=== PATIENT | female | born 1990 | race American Indian/Alaskan Native ===

== ENCOUNTER 2017-10-06 11:27 | Emergency (ER) | payer SELFPAY ==
--- NOTE | 2017-10-06 14:01 | Emergency Department Report ---
ED Abdominal Pain HPI - General Chief Complaint: Back Pain/Injury Stated Complaint: BACK PAIN/RASH Time Seen by Provider: 10/06/17 13:50 Source: patient Mode of arrival: Ambulatory Limitations: No Limitations - History of Present Illness Initial Comments: Patient is a 27-year-old female that presents to emergency room with complaints of rash and itching to her hands 2 days. 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 Now that her hands are itching. Patient also complains of left flank and left back pain. Patient states she has a history of kidney stones. Patient states that the intensity of the pain fluctuates however right now the patient states that the pain is a 7 out of 10. Patient denies fever and chills. Patient denies dysuria. Patient denies nausea and vomiting. MD Complaint: flank pain -: Sudden Location: L flank Radiation: none Migration to: no migration Severity: severe Severity scale (0 -10): 10 Quality: cramping, stabbing Consistency: constant, colicky Improves With: medication, rest Worsens With: movement Associated Symptoms: denies other symptoms - Related Data Previous Rx's Medication Instructions Recorded Last Taken Type Acetaminophen/Codeine [Tylenol 1 tab PO Q4HR PRN #15 tablet 10/06/17 Unknown Rx /Codeine # 3 tab] Cyclobenzaprine [Flexeril] 10 mg PO BID PRN #15 tablet 10/06/17 Unknown Rx Tamsulosin [Flomax] 0.4 mg PO QDAY 14 Days #14 cap 10/06/17 Unknown Rx methylPREDNISolone [Medrol] 4 mg PO DAILY 6 Days #1 tab.ds.pk 10/06/17 Unknown Rx Allergies Allergy/AdvReac Type Severity Reaction Status Date / Time No Known Allergies Allergy Unverified 10/04/15 10:04 ED Review of Systems ROS: Stated complaint: BACK PAIN/RASH Other details as noted in HPI Comment: Unobtainable due to pts medical conditions Constitutional: denies: chills, fever Eyes: denies: eye pain, eye discharge, vision change ENT: denies: ear pain, throat pain Respiratory: denies: cough, shortness of breath, wheezing Cardiovascular: denies: chest pain, palpitations Endocrine: no symptoms reported Gastrointestinal: denies: abdominal pain, nausea, diarrhea Genitourinary: denies: urgency, dysuria, discharge Musculoskeletal: denies: back pain, joint swelling, arthralgia Skin: rash. denies: lesions Neurological: denies: headache, weakness, paresthesias Psychiatric: denies: anxiety, depression Hematological/Lymphatic: denies: easy bleeding, easy bruising ED Past Medical Hx - Past Medical History Previous Medical History?: Yes Hx Kidney Stones: Yes - Surgical History Past Surgical History?: No - Family History Family history: hypertension - Social History Smoking Status: Current Every Day Smoker Substance Use Type: Alcohol - Medications Home Medications: Home Medications Medication Instructions Recorded Confirmed Last Taken Type Acetaminophen/Codeine [Tylenol 1 tab PO Q4HR PRN #15 tablet 10/06/17 Unknown Rx /Codeine # 3 tab] Cyclobenzaprine [Flexeril] 10 mg PO BID PRN #15 tablet 10/06/17 Unknown Rx Tamsulosin [Flomax] 0.4 mg PO QDAY 14 Days #14 cap 10/06/17 Unknown Rx methylPREDNISolone [Medrol] 4 mg PO DAILY 6 Days #1 tab.ds.pk 10/06/17 Unknown Rx ED Physical Exam - General Limitations: No Limitations General appearance: alert, in no apparent distress - Head Head exam: Present: atraumatic, normocephalic - Eye Eye exam: Present: normal appearance - ENT ENT exam: Present: mucous membranes moist - Neck Neck exam: Present: normal inspection - Respiratory Respiratory exam: Present: normal lung sounds bilaterally. Absent: respiratory distress - Cardiovascular Cardiovascular Exam: Present: regular rate, normal rhythm. Absent: systolic murmur, diastolic murmur, rubs, gallop - GI/Abdominal GI/Abdominal exam: Present: soft, normal bowel sounds - Extremities Exam Extremities exam: Present: normal inspection - Back Exam Back exam: Present: normal inspection, CVA tenderness (L), muscle spasm - Neurological Exam Neurological exam: Present: alert, oriented X3 - Psychiatric Psychiatric exam: Present: normal affect, normal mood - Skin Skin exam: Present: warm, dry, normal color, rash, erythema (irritation or redness noted to bilateral dorsal hands. ) ED Course Vital Signs 10/06/17 10/06/17 11:34 15:52 Temperature 98.5 F Pulse Rate 96 H Respiratory 18 20 Rate Blood Pressure 133/85 O2 Sat by Pulse 97 Oximetry ED Medical Decision Making - Lab Data Result diagrams: 10/06/17 14:16 10/06/17 14:16 - Radiology Data Radiology results: report reviewed - Medical Decision Making She is 27-year-old female that presents with complaints of flank pain. Patient found to have a renal stone. Patient appears stable for discharge. We'll discharge patient home with instructions and prescriptions. - Differential Diagnosis flank pain. Renal stone. Musculoskeletal pain. Rash. Critical care attestation.: If time is entered above; I have spent that time in minutes in the direct care of this critically ill patient, excluding procedure time. ED Disposition Clinical Impression: Contact dermatitis, Flank pain, Renal stone, Back pain, Lumbar strain Disposition: TO HOME OR SELFCARE Is pt being admited?: No Does the pt Need Aspirin: No Condition: Stable Instructions: Kidney Stones (ED), Renal Colic (ED), Contact Dermatitis (ED), Flank Pain (ED) Additional Instructions: Patient to follow-up primary care in 3-5 days. Patient to follow up with urologist in 2-4 days. Patient to return to ER if condition worsens. Patient said Tylenol and ibuprofen when necessary for pain. Patient increase water. Patient to rest. Patient is take meds as directed. Prescriptions: Acetaminophen/Codeine [Tylenol /Codeine # 3 tab] 1 tab PO Q4HR PRN #15 tablet PRN Reason: Pain Cyclobenzaprine [Flexeril] 10 mg PO BID PRN #15 tablet PRN Reason: Spasms methylPREDNISolone [Medrol] 4 mg PO DAILY 6 Days #1 tab.ds.pk Tamsulosin [Flomax] 0.4 mg PO QDAY 14 Days #14 cap Referrals: PRIMARY CARE, [Primary Care Provider] - 3-5 Days Time of Disposition: 18:02
[2017-10-06 14:43] LABS: Alanine Aminotransferase 12 units/L (7-56); Albumin 3.9 g/dL (3.9-5); BUN/Creatinine Ratio 17; Blood Urea Nitrogen 10 mg/dL (7-17); Calcium 9.3 mg/dL (8.4-10.2); Hemolysis Index 14
[2017-10-06] MEDS ORDERED: ZOFRAN IV ONE (15:18)
[2017-10-06] MEDS ORDERED: TORADOL IV ONE (15:18)
[2017-10-06 15:55] LABS: HCG Qualitative,Urine Negative (Negative)
[2017-10-06 15:56] LABS: Bilirubin,Urine NEG (Negative); Blood,Urine LG (Negative); Color,Urine Yellow (Yellow); Mucus,Urine FEW /HPF; Protein,Urine <15 mg/dL mg/dL (Negative); Urobilinogen,Urine < 2.0 mg/dL (<2.0)
--- NOTE | 2017-10-06 17:19 | Cat Scan Report ---
FINAL REPORT PROCEDURE: CT ABDOMEN PELVIS WO CON TECHNIQUE: Computerized axial tomography of the abdomen and pelvis was performed without intravenous contrast. This study is performed without intravascular contrast material and its sensitivity for abdominal and pelvic pathology, including neoplasms, inflammation, abscess, free fluid, thrombosis, arterial dissection and infarction, is reduced compared with a contrast enhanced study. HISTORY: flank pain COMPARISON: No prior studies are available for comparison. FINDINGS: Lower Lung harding: Minimal atelectasis seen in the lung bases which are otherwise unremarkable. Upper Abdomen: The liver, gallbladder, the adrenal glands pancreas and spleen are unremarkable. Kidneys, Ureters and Urinary bladder: There is a nonobstructing 2.8 x 2.3 millimeter calculus in the lower 3rd of the left kidney. No other renal calculi are seen. No renal masses are identified. There is no hydronephrosis. No ureteral calculi are identified. Multiple calcifications are seen in the lower pelvis which appear to represent phleboliths. The urinary bladder is unremarkable. Retroperitoneum: Abdominal aorta appears normal. Nonspecific subcentimeter lymph nodes are seen in the retroperitoneum. No pathologically enlarged lymph nodes are identified. Bowel: Bowel loops are unremarkable. No evidence of bowel obstruction ascites or free intraperitoneal gas. Normal-appearing appendix is seen in the right lower quadrant directed medially. Reproductive organs: Uterus is deviated to the right of midline otherwise unremarkable. No abnormal adnexal masses are identified. Other: No acute bony abnormalities are seen. IMPRESSION: Small nonobstructing calculus visualize left kidney. No evidence of hydronephrosis or ureteral calculi. No other abnormalities are seen..
[2017-10-06 17:51] LABS: Basophils # (Auto) 0.1 K/mm3 (0.0-0.1); Basophils % (Auto) 0.8 % (0.0-1.8); Eosinophils # (Auto) 0.3 K/mm3 (0.0-0.4); Eosinophils % (Auto) 3.5 % (0.0-4.3); Hematocrit 41.2 % (30.3-42.9); Hemoglobin 13.3 gm/dl (10.1-14.3); Lymphocytes # (Auto) 3.7 K/mm3 (1.2-5.4); Lymphocytes % (Auto) 38.4 % (13.4-35.0); Mean Corpuscular HGB Conc 32 % (30-34); Mean Corpuscular Hemoglobin 28 pg (28-32); Mean Corpuscular Volume 87 fl (79-97); Monocytes # (Auto) 0.5 K/mm3 (0.0-0.8); Monocytes % (Auto) 5.6 % (0.0-7.3); Platelet Count 274 K/mm3 (140-440); Red Blood Count 4.73 M/mm3 (3.65-5.03); Red Cell Distribution Width 14.9 % (13.2-15.2)
[2017-10-06 19:11] VITALS: BP 125/72
== END 2017-10-06 19:12 | disposition home or self-care (01) ==
LOC: ED 11:27
DX: S39.012A Strain of muscle, fascia and tendon of lower back, initial encounter (principal); L25.9 Unspecified contact dermatitis, unspecified cause; R10.9 Unspecified abdominal pain; N20.0 Calculus of kidney; I10 Essential (primary) hypertension; F17.200 Nicotine dependence, unspecified, uncomplicated; X50.3XXA Overexertion from repetitive movements, initial encounter; Y93.89 Activity, other specified; Y92.89 Other specified places as the place of occurrence of the external cause; Y99.8 Other external cause status
CPT/HCPCS: 36415; 74176; 80053; 81001; 81025; 85025; 96374; 96375; 99284; J1885; J2405; J2930

== ENCOUNTER 2018-02-22 10:05 | Emergency (ER) | payer SELFPAY ==
[2018-02-22 10:15] VITALS: BP 133/75
[2018-02-22] MEDS ORDERED: CLEOCIN 900 MG/50 mL 900 MG/50 ML BAG IV ONE (11:59)
[2018-02-22] MEDS ORDERED: NORCO 5/325 PO ONE (11:59)
--- NOTE | 2018-02-22 12:10 | Emergency Department Report ---
Chief Complaint: Dental/Oral Stated Complaint: FACE SWOLLEN Time Seen by Provider: 02/22/18 11:45 - HPI History of Present Illness: [id number] female presents to the emergency department with complaint of pain and facial swelling to the upper lip that radiates to the right side of the nose and cheek and all this is been going on since last night. The patient thinks she might have some type of a dental abscess or infection. She has a dental appointment on March 20 but does not think she can wait that long. No drooling or trismus. She has not taken anything for her symptoms prior to presentation. - ROS Review of Systems: Positive for facial swelling and pain Negative for fever, nausea, vomiting - Exam Vital Signs: Vital Signs 02/22/18 10:11 Temperature 99.3 F Pulse Rate 96 H Respiratory 16 Rate Blood Pressure 133/75 O2 Sat by Pulse 99 Oximetry Physical Exam: Patient does have swelling to the right side of the nasal labial fold as well as right paranasal and right cheek. There is an area to the right nasal labial fold that is very tender, mobile and fluctuant concerning for abscess. Oropharynx is otherwise clear. No obvious palpable or visual dental abscess seen at this time. MSE screening note: Focused history and physical exam performed. Due to findings the following was ordered: I have ordered a CBC, IV clindamycin and a CT of the facial bones with IV contrast. ED Disposition for MSE Condition: Stable Referrals: PRIMARY CARE, [Primary Care Provider] - 3-5 Days
[2018-02-22 12:44] LABS: Basophils # (Auto) 0.1 K/mm3 (0.0-0.1); Basophils % (Auto) 0.7 % (0.0-1.8); Eosinophils # (Auto) 0.3 K/mm3 (0.0-0.4); Hematocrit 42.5 % (30.3-42.9); Hemoglobin 13.9 gm/dl (10.1-14.3); Lymphocytes # (Auto) 3.7 K/mm3 (1.2-5.4); Lymphocytes % (Auto) 32.9 % (13.4-35.0); Mean Corpuscular HGB Conc 33 % (30-34); Mean Corpuscular Hemoglobin 29 pg (28-32); Mean Corpuscular Volume 87 fl (79-97); Monocytes # (Auto) 0.5 K/mm3 (0.0-0.8); Monocytes % (Auto) 4.3 % (0.0-7.3); Platelet Count 256 K/mm3 (140-440)
[2018-02-22 14:18] LABS: BUN/Creatinine Ratio 13; Blood Urea Nitrogen 9 mg/dL (7-17); Calcium 9.5 mg/dL (8.4-10.2); Hemolysis Index 34
--- NOTE | 2018-02-22 15:28 | Cat Scan Report ---
CT FACIAL BONES WITH CONTRAST: HISTORY: Abscess, swelling to upper lip. TECHNIQUE: Helical CT images following IV contrast with sagittal and coronal CT reformations. FINDINGS: There is an encapsulated fluid collection in the upper lip region just to the right of midline. The epicenter of this collection overlies the right maxillary incisors. This collection measures 3.2 x 2.7 x 2.4 cm. The collection erodes into the anterior hard palate. It is unclear if this represents a large dental abscess or other chronic abnormality such as a dentigerous cyst. Please correlate with the patient's clinical history. The remaining facial soft tissues are unremarkable. No acute facial bone fracture is identified. The sinuses are well-aerated. IMPRESSION: Cystic collection overlying the anterior maxilla to the right of midline as described.
[2018-02-22] MEDS ORDERED: MORPHINE IV ONE (15:42)
[2018-02-22] MEDS ORDERED: XYLOCAINE 1% 20 mL INFILTRATI ONE (15:58)
--- NOTE | 2018-02-22 16:09 | Emergency Department Report ---
Abscess Boil HPI - HPI Chief Complaint: Dental/Oral Stated Complaint: FACE SWOLLEN Time Seen by Provider: 02/22/18 11:45 Duration: 1 Day Location: Other (right frontal gingival/maxillary region) Severity: Mild History: Yes Pain, No Fever, No Purulent Drainage, No Numbness, No Foreign Body , No Previous History, No Insect Bite HPI: This is a 27-year-old female nontoxic, well nourished in appearance, no acute signs of distress presents to the ED with c/o of abscess to right gingival /maxillary upper area. Patient stated has history of dental caries but no follows up with a dentist. Patient denies any pus or drainage. She denies any fever, chills, nausea, vomiting, chest pain, short of breath, headache or stiff neck. Patient denies any allergies with no significant past medical history. Home Medications: Previous Rx's Medication Instructions Recorded Last Taken Type Acetaminophen/Codeine [Tylenol 1 tab PO Q4HR PRN #15 tablet 10/06/17 Unknown Rx /Codeine # 3 tab] Cyclobenzaprine [Flexeril] 10 mg PO BID PRN #15 tablet 10/06/17 Unknown Rx Tamsulosin [Flomax] 0.4 mg PO QDAY 14 Days #14 cap 10/06/17 Unknown Rx methylPREDNISolone [Medrol] 4 mg PO DAILY 6 Days #1 tab.ds.pk 10/06/17 Unknown Rx Acetaminophen/Codeine [Tylenol 1 tab PO Q6H PRN #12 tab 02/22/18 Unknown Rx /Codeine # 3 tab] Chlorhexidine Mouthwash [Peridex] 15 ml MM BID #1 bottle 02/22/18 Unknown Rx Clindamycin [Clindamycin CAP] 300 mg PO Q8H #21 cap 02/22/18 Unknown Rx Ibuprofen [Motrin] 600 mg PO Q8H PRN #30 tablet 02/22/18 Unknown Rx Allergies/Adverse Reactions: Allergies Allergy/AdvReac Type Severity Reaction Status Date / Time No Known Allergies Allergy Unverified 10/04/15 10:04 ED Review of Systems ROS: Stated complaint: FACE SWOLLEN Other details as noted in HPI Constitutional: denies: chills, fever Eyes: denies: eye pain, eye discharge, vision change ENT: denies: ear pain, throat pain Respiratory: denies: cough, shortness of breath, wheezing Cardiovascular: denies: chest pain, palpitations Endocrine: no symptoms reported Gastrointestinal: denies: abdominal pain, nausea, diarrhea Genitourinary: denies: urgency, dysuria, discharge Musculoskeletal: denies: back pain, joint swelling, arthralgia Skin: denies: rash, lesions Neurological: denies: headache, weakness, paresthesias Psychiatric: denies: anxiety, depression Hematological/Lymphatic: denies: easy bleeding, easy bruising ED Past Medical Hx - Past Medical History Previous Medical History?: Yes Hx Kidney Stones: Yes - Surgical History Past Surgical History?: No - Social History Smoking Status: Never Smoker Substance Use Type: None - Medications Home Medications: Home Medications Medication Instructions Recorded Confirmed Last Taken Type Acetaminophen/Codeine [Tylenol 1 tab PO Q4HR PRN #15 tablet 10/06/17 Unknown Rx /Codeine # 3 tab] Cyclobenzaprine [Flexeril] 10 mg PO BID PRN #15 tablet 10/06/17 Unknown Rx Tamsulosin [Flomax] 0.4 mg PO QDAY 14 Days #14 cap 10/06/17 Unknown Rx methylPREDNISolone [Medrol] 4 mg PO DAILY 6 Days #1 tab.ds.pk 10/06/17 Unknown Rx Acetaminophen/Codeine [Tylenol 1 tab PO Q6H PRN #12 tab 02/22/18 Unknown Rx /Codeine # 3 tab] Chlorhexidine Mouthwash [Peridex] 15 ml MM BID #1 bottle 02/22/18 Unknown Rx Clindamycin [Clindamycin CAP] 300 mg PO Q8H #21 cap 02/22/18 Unknown Rx Ibuprofen [Motrin] 600 mg PO Q8H PRN #30 tablet 02/22/18 Unknown Rx ED Abscess Boil Physical Exam - Exam General: Vital signs noted. No distress. Alert and acting appropriately. GENERAL: The patient is a well-developed, well-nourished in no apparent distress. Patient is alert and acting appropriately for age. Alert and oriented 3, no apparent distress, normal gait, atraumatic. HEENT: Head is normocephalic and atraumatic. PERRL, Extraocular muscles are intact. Pupils are equal, round, and reactive to light and accommodation. Nares appeared normal. Mouth is well hydrated and without lesions. Mucous membranes are moist. Posterior pharynx clear of any exudate or lesions. Mouth is well hydrated and without lesions. Tonsils not erythematous or swollen. Uvula midline. Tongue elevated. Mucous members are moist. Posterior pharynx clear, no exudate or lesions. Patent airways. NECK: Supple. No carotid bruits. No lymphadenopathy or thyromegaly.nontender. No meningitic signs are noted. LUNGS: Clear to auscultation. Non labor breathing. No intercostal retractions. Symmetrical with respiration, no wheezing, no rales, or crackles. HEART: Regular rate and rhythm without murmur, rubs or gallops. No reproducible. S1, S2 present, regular rate and rhythm without murmur, no rubs, no gallops. ABDOMEN: Soft, nontender, and nondistended. Positive bowel sounds. No hepatosplenomegaly was noted. No guarding or rebound tenderness, negative epigastric bruit. Negative psoas sign, negative banks sign, negative McBurneys sign EXTREMITIES: Without any cyanosis, clubbing, rash, lesions or edema. Peripheral pulses intact. Capillary refill less than 2 seconds. Full range of motion bilaterally. NEUROLOGIC: Cranial nerves II through XII are grossly intact. Alert and oriented x 3. Normal gait. Symmetrical strength and sensation. Reflexes 2+ throughout. Cerebellar testing normal. GCS score of 15. PSYCHIATRIC: Normal affect with no suicidal or homicidal ideations. Skin: 3 cm induration and flutances noted to upper right sided maxillary area. No pus or drainage noted. Tender to touch. Size: 3 cm Exam: Yes Tenderness, Yes Fluctuance, Yes Normal Neurologic Exam, Yes Normal Circulation, No Surrounding Cellulites/Erythema, No Lymphangitis, No Crepitation , No Heart Murmur I & D Note - I & D Note I & D Note: Under sterile field, I used Betadine to cleanse the area. I then used 1% lidocaine plain with 25-gauge 5/8 needle to inject area for anesthetic purposes. Total volume injected 2 mL. I then used an 11 blade to make a 1 cm incision. About 5 mL's of purulent drainage has been noted. I then used a hemostat to break the abscess formation. I then used sterile 0.9% normal saline flush to flush the wound with total volume of 40 mL used. Bleeding is under control. Patient tolerated the procedure well with no signs of distress noted. ED Course Vital Signs 0802/22/18 02/22/18 10:11 12:25 15:50 Temperature 99.3 F Pulse Rate 96 H Respiratory 16 18 22 Rate Blood Pressure 133/75 O2 Sat by Pulse 99 Oximetry - Reevaluation(s) Reevaluation #1: 02/22/18 16:25 Patient is speaking in full sentences with no signs of distress noted. - Consultations Consultation #1: 02/22/18 16:25 Patient has been consulted with Dr. Duke about patient history, physical exam, and labs/CT and examined and screened patient and agrees to ED plan of care. Critical care attestation.: If time is entered above; I have spent that time in minutes in the direct care of this critically ill patient, excluding procedure time. ED Medical Decision Making - Lab Data Result diagrams: 02/22/18 12:13 02/22/18 12:13 - Medical Decision Making This is a 27-year-old female that presents with abscess. Patient is stable and was examined by me. This is incision and drainage and has been performed and patient tolerated well. Patient was educated on proper wound care. Labs obtained. CT obtained without contrast. Patient received clindamycin IV and as well as discharge. Patient also discharged with Tylenol with codeine and was instructed not to operate any machinery while taking this due to drowsiness. Patient that a family member will drive her home after discharge due to drowsiness of morphine. Patient was instructed to refer to Follow-up with a dentist doctor in 3-5 days or if symptoms worsen and continue return to emergency room as soon as possible. At time of discharge, the patient does not seem toxic or ill in appearance. No acute signs of distress noted. Patient agrees to discharge treatment plan of care. No further questions noted by the patient. ED Disposition Clinical Impression: Abscess, Encounter for incision and drainage procedure, Dental caries, Gingival abscess Disposition: [id number] TO HOME OR SELFCARE Is pt being admited?: No Does the pt Need Aspirin: No Condition: Stable Instructions: Abscess Incision and Drainage (ED), Abscess (ED), Acetaminophen/ Codeine (By mouth), Ibuprofen (By mouth), Clindamycin (By mouth) Additional Instructions: Follow-up with a dentist doctor in 3-5 days or if symptoms worsen and continue return to emergency room as soon as possible. Do not operate any machinery while taking Tylenol with codeine as this may cause drowsiness. Prescriptions: Acetaminophen/Codeine [Tylenol /Codeine # 3 tab] 1 tab PO Q6H PRN #12 tab PRN Reason: Pain , Severe (7-10) Chlorhexidine Mouthwash [Peridex] 15 ml MM BID #1 bottle Clindamycin [Clindamycin CAP] 300 mg PO Q8H #21 cap Ibuprofen [Motrin] 600 mg PO Q8H PRN #30 tablet PRN Reason: Pain Referrals: PRIMARY CAREMD [Primary Care Provider] - 3-5 Days MARKELL MAYS MD [Staff Physician] - 3-5 Days [facility] [Outside] - 3-5 Days Forms: Work/School Release Form(ED)
== END 2018-02-22 16:47 | disposition home or self-care (01) ==
LOC: ED 10:05
DX: K05.219 Aggressive periodontitis, localized, unspecified severity (principal); K02.9 Dental caries, unspecified; Z87.442 Personal history of urinary calculi
CPT/HCPCS: 36415; 41800; 70487; 80048; 84703; 85025; 96365; 96375; 99284; J2270; Q9967

== ENCOUNTER 2018-09-16 08:05 | Emergency (ER) | payer OTHER ==
[2018-09-16 08:18] VITALS: BP 154/87
[2018-09-16 08:48] LABS: Bilirubin,Urine NEG (Negative); Blood,Urine SM (Negative); Color,Urine Colorless (Yellow); Protein,Urine <15 mg/dL mg/dL (Negative); Urobilinogen,Urine < 2.0 mg/dL (<2.0)
[2018-09-16 08:49] LABS: HCG Qualitative,Urine Negative (Negative)
--- NOTE | 2018-09-16 09:39 | Emergency Department Report ---
ED Abdominal Pain HPI - General Chief Complaint: Abdominal Pain Stated Complaint: ABD PAIN/SIDE PAIN/VAGINAL PAIN Time Seen by Provider: 09/16/18 09:29 Source: patient Mode of arrival: Ambulatory Limitations: No Limitations - History of Present Illness MD Complaint: abdominal pain, flank pain -: This morning Location: L flank Radiation: suprapubic Migration to: no migration Severity: moderate Severity scale (0 -10): 6 Quality: sharp Consistency: intermittent - Related Data Previous Rx's Medication Instructions Recorded Last Taken Type Acetaminophen/Codeine [Tylenol 1 tab PO Q4HR PRN #15 tablet 10/06/17 Unknown Rx /Codeine # 3 tab] Cyclobenzaprine [Flexeril] 10 mg PO BID PRN #15 tablet 10/06/17 Unknown Rx Tamsulosin [Flomax] 0.4 mg PO QDAY 14 Days #14 cap 10/06/17 Unknown Rx methylPREDNISolone [Medrol] 4 mg PO DAILY 6 Days #1 tab.ds.pk 10/06/17 Unknown Rx Acetaminophen/Codeine [Tylenol 1 tab PO Q6H PRN #12 tab 02/22/18 Unknown Rx /Codeine # 3 tab] Chlorhexidine Mouthwash [Peridex] 15 ml MM BID #1 bottle 02/22/18 Unknown Rx Clindamycin [Clindamycin CAP] 300 mg PO Q8H #21 cap 02/22/18 Unknown Rx Ibuprofen [Motrin] 600 mg PO Q8H PRN #30 tablet 02/22/18 Unknown Rx Allergies Allergy/AdvReac Type Severity Reaction Status Date / Time No Known Allergies Allergy Unverified 10/04/15 10:04 ED Review of Systems ROS: Stated complaint: ABD PAIN/SIDE PAIN/VAGINAL PAIN Other details as noted in HPI Comment: All other systems reviewed and negative Constitutional: denies: chills, fever Respiratory: denies: cough, orthopnea, shortness of breath, SOB with exertion, SOB at rest, wheezing Cardiovascular: denies: chest pain, palpitations Gastrointestinal: abdominal pain. denies: nausea, vomiting, diarrhea, constipation Musculoskeletal: back pain Neurological: denies: headache, weakness ED Past Medical Hx - Past Medical History Hx Kidney Stones: Yes - Social History Smoking Status: Current Every Day Smoker Substance Use Type: Alcohol, Non Opiate Pain - Medications Home Medications: Home Medications Medication Instructions Recorded Confirmed Last Taken Type Acetaminophen/Codeine [Tylenol 1 tab PO Q4HR PRN #15 tablet 10/06/17 Unknown Rx /Codeine # 3 tab] Cyclobenzaprine [Flexeril] 10 mg PO BID PRN #15 tablet 10/06/17 Unknown Rx Tamsulosin [Flomax] 0.4 mg PO QDAY 14 Days #14 cap 10/06/17 Unknown Rx methylPREDNISolone [Medrol] 4 mg PO DAILY 6 Days #1 tab.ds.pk 10/06/17 Unknown Rx Acetaminophen/Codeine [Tylenol 1 tab PO Q6H PRN #12 tab 02/22/18 Unknown Rx /Codeine # 3 tab] Chlorhexidine Mouthwash [Peridex] 15 ml MM BID #1 bottle 02/22/18 Unknown Rx Clindamycin [Clindamycin CAP] 300 mg PO Q8H #21 cap 02/22/18 Unknown Rx Ibuprofen [Motrin] 600 mg PO Q8H PRN #30 tablet 02/22/18 Unknown Rx ED Physical Exam - General Limitations: No Limitations General appearance: alert, in no apparent distress - Head Head exam: Present: atraumatic, normocephalic, normal inspection - Eye Eye exam: Present: normal appearance, PERRL - ENT ENT exam: Present: normal exam, normal orophraynx, mucous membranes moist - Neck Neck exam: Present: normal inspection, full ROM. Absent: tenderness, meningismus, lymphadenopathy, thyromegaly - Respiratory Respiratory exam: Present: normal lung sounds bilaterally. Absent: respiratory distress, wheezes, rales, rhonchi, stridor, chest wall tenderness, accessory muscle use, decreased breath sounds, prolonged expiratory - Cardiovascular Cardiovascular Exam: Present: regular rate, normal rhythm, normal heart sounds - GI/Abdominal GI/Abdominal exam: Present: soft, normal bowel sounds. Absent: distended, tenderness, guarding, rebound, rigid, organomegaly, mass, bruit, pulsatile mass, hernia - Extremities Exam Extremities exam: Present: normal inspection, full ROM, normal capillary refill. Absent: pedal edema, calf tenderness - Back Exam Back exam: Present: normal inspection, full ROM. Absent: CVA tenderness (R), CVA tenderness (L), muscle spasm, paraspinal tenderness, vertebral tenderness, rash noted - Neurological Exam Neurological exam: Present: alert, oriented X3, CN II-XII intact, normal gait, reflexes normal - Psychiatric Psychiatric exam: Present: normal mood - Skin Skin exam: Present: warm, intact, normal color ED Course Vital Signs 09/16/18 08:15 Temperature 98.7 F Pulse Rate 93 H Respiratory 20 Rate Blood Pressure 154/87 O2 Sat by Pulse 100 Oximetry ED Medical Decision Making - Radiology Data Radiology results: report reviewed Referring Physician: HERMINIA BARAJAS Patient Name: BRIDGET PENALOZA Date of : 1990 Sex: Female Report Date: 2018-09-16 Report Status: Finalized Findings [facility] [address] [place] [address] Cat Scan Report Signed Patient: BRIDGET PENALOZA MR#: [id number] : 1990 Acct:[id number] Age/Sex: 28 / F ADM Date: 09/16/18 Loc: ED Attending Dr: Ordering Physician: HERMINIA BARAJAS Date of Service: 09/16/18 Procedure(s): CT abdomen pelvis wo con Accession Number(s): [id number] cc: HERMINIA BARAJAS PROCEDURE: CT ABDOMEN PELVIS WO CON TECHNIQUE: Computerized axial tomography of the abdomen and pelvis was performed without intravenous contrast. This study is performed without intravascular contrast material and its sensitivity for abdominal and pelvic pathology, including neoplasms, inflammation, abscess, free fluid, thrombosis, arterial dissection and infarction, is reduced compared with a contrast enhanced study. HISTORY: ABDOMINAL PAIN/ left flank pain COMPARISONS: None . FINDINGS: Visualized lower thorax: No significant abnormality. Liver: Normal size and attenuation. Spleen: Normal size and attenuation. Gallbladder and biliary system: Normal. Pancreas: Normal. Adrenals: Normal. Kidneys: Mild left hydronephrosis and mild left hydroureter. Possible 3.5 mm calcified stone at the left ureterovesicular junction versus phlebolith. Normal noncontrast appearance of the right kidney. GI tract: No focal wall thickening. No evidence of obstruction. Normal appendix without surrounding inflammatory change. . Lymph nodes and mesentery: Normal. Vasculature: Normal.. Bladder: Normal. Reproductive organs: Normal. Peritoneum: No free fluid. Multiple phleboliths are seen in the pelvis. Musculoskeletal structures: No suspicious osseous lesions. No acute fracture or dislocation. Soft tissues are normal. Other: None. IMPRESSION: Possible 3.5 mm calcified stone at the left ureterovesicular junction with associated mild left hydronephrosis and mild left hydroureter. . This document is electronically signed by Chiquis Beck MD., September 16 2018 10:34:43 AM ET Transcribed By: ROSA Dictated By: CHIQUIS BECK MD Electronically Authenticated By: CHIQUIS BECK MD Signed Date/Time: 09/16/18 1036 DD/ 1010 TD/TT: 09/16/18 1010 Critical care attestation.: If time is entered above; I have spent that time in minutes in the direct care of this critically ill patient, excluding procedure time. ED Disposition Clinical Impression: Flank pain, Ureteric colic Disposition: - TO HOME OR SELFCARE Is pt being admited?: No Condition: Stable Instructions: Abdominal Pain (ED), Flank Pain (ED), Kidney Stones (ED), Dysuria (ED) Referrals: KUNAL DOMINGUEZ MD [Primary Care Provider] - 3-5 Days DUSTIN LARSEN MD [Staff Physician] - 3-5 Days
--- NOTE | 2018-09-16 10:36 | Cat Scan Report ---
PROCEDURE: CT ABDOMEN PELVIS WO CON TECHNIQUE: Computerized axial tomography of the abdomen and pelvis was performed without intravenous contrast. This study is performed without intravascular contrast material and its sensitivity for ab dominal and pelvic pathology, including neoplasms, inflammation, abscess, free fluid, thrombosis, art erial dissection and infarction, is reduced compared with a contrast enhanced study. HISTORY: ABDOMINAL PAIN/ left flank pain COMPARISONS: None . FINDINGS: Visualized lower thorax: No significant abnormality. Liver: Normal size and attenuation. Spleen: Normal size and attenuation. Gallbladder and biliary system: Normal. Pancreas: Normal. Adrenals: Normal. Kidneys: Mild left hydronephrosis and mild left hydroureter. Possible 3.5 mm calcified stone at the l eft ureterovesicular junction versus phlebolith. Normal noncontrast appearance of the right kidney. GI tract: No focal wall thickening. No evidence of obstruction. Normal appendix without surrounding inflammatory change. . Lymph nodes and mesentery: Normal. Vasculature: Normal.. Bladder: Normal. Reproductive organs: Normal. Peritoneum: No free fluid. Multiple phleboliths are seen in the pelvis. Musculoskeletal structures: No suspicious osseous lesions. No acute fracture or dislocation. Soft tis sues are normal. Other: None. IMPRESSION: Possible 3.5 mm calcified stone at the left ureterovesicular junction with associated mi ld left hydronephrosis and mild left hydroureter. . This document is electronically signed by Chiquis Monet MD., September 16 2018 10:34:43 AM ET
== END 2018-09-16 11:30 | disposition home or self-care (01) ==
LOC: ED 08:05
DX: N23 Unspecified renal colic (principal); F17.200 Nicotine dependence, unspecified, uncomplicated
CPT/HCPCS: 74176; 81001; 81025; 99284

== ENCOUNTER 2018-10-10 11:07 | Day surgery (SDC) | payer BC, MEDICAID ==
[~2018-10-10 11:07] MED LIST: ANCEF/STERILE WATER 2 GM/20 ML IV NR; LACTATED RINGERS 1,000 ML IV SCH; VERSED IV ONE
[2018-10-10] MEDS ORDERED: XYLOCAINE MPF 2% ONE (13:05)
[2018-10-10] MEDS ORDERED: DIPRIVAN 10 MG/ML IV ONE (13:06)
[2018-10-10] MEDS ORDERED: SUBLIMAZE ONE ×2 (13:06)
[2018-10-10] MEDS ORDERED: SUBLIMAZE IV PRN (13:25)
--- NOTE | 2018-10-10 13:25 | Anesthesia Day of Surgery ---
Anesthesia Day of Surgery - Day of Surgery Patient Examined: Yes Patient H&P Reviewed: Yes Patient is NPO: Yes
--- NOTE | 2018-10-10 13:25 | Anesthesia Consultation ---
Anesthesia Consult and Med Hx Date of service: 10/10/18 - Airway Anesthetic Teeth Evaluation: Good ROM Head & Neck: Adequate Mental/Hyoid Distance: Adequate Mallampati Class: Class II Intubation Access Assessment: Possibly Difficult - Pulmonary Exam CTA: Yes - Cardiac Exam Cardiac Exam: RRR - Pre-Operative Health Status ASA Pre-Surgery Classification: ASA3 Proposed Anesthetic Plan: General - Pulmonary Hx Smoking: Yes (1/3 PPD X 10 YRS) Hx Respiratory Symptoms: No Hx Sleep Apnea: No (CARMEN PRE SCREEN HIGH RISK) - Cardiovascular System Hx Hypertension: No - Central Nervous System Hx Back Pain: Yes (FROM STONE) - Endocrine Hx Renal Disease: No Hx Liver Disease: No Hx Insulin Dependent Diabetes: No Hx Non-Insulin Dependent Diabetes: No Hx Thyroid Disease: No - Other Systems Hx Cancer: No Hx Obesity: Yes (BMI 40) - Additional Comments Anesthesia Medical History Comments: No prior GA or FHx anesthetic complications.
[2018-10-10] MEDS ORDERED: WATER FOR IRRIG STERILE IR ONE ×2 (13:27→13:43)
--- NOTE | 2018-10-10 14:02 | Short Stay Summary ---
Short Stay Documentation Date of service: 10/10/18 - History H&P: obtained from office - Allergies and Medications Current Medications: Allergies No Known Allergies Allergy (Verified 10/05/18 12:29) Home Medications Medication Instructions Recorded Confirmed Last Taken Type Calcium Carbonate [Tums Ultra 1,177 mg PO PRN PRN 10/05/18 10/05/18 Unknown History Strength] HYDROcodone/ACETAMINOPHEN [Cyrus 1 each PO PRN PRN 10/05/18 10/05/18 Unknown History 5-325 Tablet] Active Medications Cefazolin Sodium (Ancef/Sterile Water 2 Gm/20 Ml) 2 gm IV PREOP NR Stop: 10/10/18 23:59 Fentanyl (Sublimaze) 50 mcg IV Q5MIN PRN PRN Reason: Pain , Severe (7-10) Stop: 10/10/18 23:59 Lactated Ringer's (Lactated Ringers) 1,000 mls @ 75 mls/hr IV DIRECT JESUS Last Admin: 10/10/18 12:10 Dose: 75 mls/hr Documented by: - Brief post op/procedure progress note Date of procedure: 10/10/18 Pre-op diagnosis: left ureteral stone Post-op diagnosis: same Procedure: cysto, rpg, left ureteroscopy, basket stone, stent with external string Anesthesia: BRONSON Surgeon: DUSTIN LARSEN Estimated blood loss: none Condition: stable - Hospital course Hospital course: noe leal, teresabid, post info on chart - Disposition Condition at discharge: Stable Disposition: DC-01 TO HOME OR SELFCARE Short Stay Discharge Plan Follow up with: KUNAL DOMINGUEZ MD [Primary Care Provider] - 7 Days
[2018-10-10] MEDS ORDERED: DEMEROL ONE (14:14)
[2018-10-10] MEDS ORDERED: DEMEROL IV PRN (14:16)
--- NOTE | 2018-10-10 14:21 | Operative Report ---
PREOPERATIVE DIAGNOSIS: Left distal ureteral stone, 4 mm. POSTOPERATIVE DIAGNOSIS: Left distal ureteral stone, 4 mm. PROCEDURE: Cystoscopy, right retrograde pyelogram, left ureteroscopy, basket stone extraction, double-J stent (26-Taiwanese 22 cm with an external string). SURGEON: Seng Enciso MD ANESTHESIA: General. ESTIMATED BLOOD LOSS: Minimal. FLUIDS: Crystalloid. COMPLICATIONS: No complications. INDICATIONS: This 28-year-old female is seen in the office for left flank pain and pelvic pain. CT abdomen and pelvis revealed a 4 mm distal stone. We tried conservative treatment; however, the patient developed worsening pain and wants to proceed with surgical intervention. Risks, benefits, and complications were explained. DESCRIPTION OF PROCEDURE: The patient was taken to the operative suite, placed in a supine position. After adequate general anesthesia, placed in a dorsal lithotomy position, prepped and draped in a sterile fashion. Pancystourethroscopy was performed with 22-Taiwanese Storz cystoscope. Stone could be appreciated at the opening of the ureteral orifice on the left side. Right retrograde pyelogram was obtained with an 8 Taiwanese [place] catheter and 8 mL of contrast. No filling defects or obstruction. Two 0.035 Glidewires were placed. Rigid ureteroscopy was performed. Stone was engaged with a 3-Taiwanese Gretchen basket and extracted without difficulty. Ureteroscopy up to the renal pelvis, no other stones could be appreciated. A 6-Taiwanese 22 cm double-J stent with an external string was left indwelling. The patient was extubated and taken to recovery room. She will go home on Macrobid, Ultram and Humphreys. We will give her her stone. JOB# [id number] [facility]
[2018-10-10] MEDS ORDERED: NORCO 5/325 PO PRN (15:10)
[2018-10-10 15:30] VITALS: BP 126/82
--- NOTE | 2018-10-11 08:10 | Fluoroscopy Report ---
FLUOROSCOPY RETROGRADE UROGRAPHY: HISTORY: Calculus the left ureter. FINDINGS: Fluoroscopy was provided by radiology during retrograde urography by the urologist. 4 fluoroscopic images were captured. The images demonstrate placement of a left ureteral stent which is in good position on final image. The procedural notes mention that left ureteroscopy was performed and a left ureteral stone was removed by basket extraction. Images of the right retrograde pyelogram are normal. IMPRESSION: Left ureteral stone removal. Left ureteral stent placement. Please correlate with the procedural report by Dr. Enciso is needed.
== END 2018-10-10 16:30 | disposition home or self-care (01) ==
LOC: OR 11:07
PROVIDERS: ATTEND Urology
DX: N20.1 Calculus of ureter (principal); K21.9 Gastro-esophageal reflux disease without esophagitis; F17.210 Nicotine dependence, cigarettes, uncomplicated; E66.9 Obesity, unspecified; Z68.41 Body mass index [BMI] 40.0-44.9, adult; Z87.440 Personal history of urinary (tract) infections; Z79.899 Other long term (current) drug therapy; Z98.890 Other specified postprocedural states
CPT/HCPCS: 52332; 52352; 74420; 81025; A4217; C1758; C1769; C2617; J0690; J2175; J2250; J2704; J3010; J7120; Q9967

== ENCOUNTER 2019-02-22 04:29 | Emergency (ER) | payer BC, MEDICAID ==
[2019-02-22 04:40] VITALS: BP 147/83
--- NOTE | 2019-02-22 04:58 | Emergency Department Report ---
ED General Adult HPI - General Chief complaint: Earache Stated complaint: RT EARACHE; H/A Time Seen by Provider: 02/22/19 04:53 Source: patient Mode of arrival: Ambulatory Limitations: No Limitations - History of Present Illness Initial comments: Patient is a 28-year-old Afro-Welsh female with no past medical history presents to the ED with Altman of acute onset persistent severe right hip pain and ringing in the right ear for the last 1 month, worse the last 12 hours. Patient also complains of severe right temporal headache for the last 1 month. Patient denies nausea, vomiting, dizziness, vertigo, fever, chills, nasal and sinus congestion, chest pain, shortness of breath, sore throat, cough or abdominal pain, change in vision or neck pain. MD Complaint: right ear pain -: Gradual, month(s) (1) Location: face (right ear) Radiation: non-radiation Severity scale (0 -10): 4 Quality: aching, sharp Consistency: intermittent Improves with: none Worsens with: none Associated Symptoms: denies other symptoms, headaches. denies: confusion, chest pain, cough, diaphoresis, loss of appetite, malaise, nausea/vomiting, rash, seizure, shortness of breath, syncope, weakness Treatments Prior to Arrival: none - Related Data Home Medications Medication Instructions Recorded Confirmed Last Taken Calcium Carbonate [Tums Ultra 1,177 mg PO PRN PRN 10/05/18 10/05/18 Unknown Strength] HYDROcodone/ACETAMINOPHEN [Holmes 1 each PO PRN PRN 10/05/18 10/05/18 Unknown 5-325 Tablet] Previous Rx's Medication Instructions Recorded Last Taken Type Amoxicillin/Potassium Clav 1 each PO Q12H #20 tablet 02/22/19 Unknown Rx [Augmentin 875-125 Tablet] Ibuprofen [Motrin] 800 mg PO Q8HR PRN #20 tablet 02/22/19 Unknown Rx Ofloxacin 0.3% [Floxin 0.3% Otic] 1 drop OT DAILY #1 bottle 02/22/19 Unknown Rx Allergies Allergy/AdvReac Type Severity Reaction Status Date / Time No Known Allergies Allergy Verified 10/05/18 12:29 ED Review of Systems ROS: Stated complaint: RT EARACHE; H/A Other details as noted in HPI Constitutional: denies: chills, fever Eyes: denies: eye pain, eye discharge, vision change ENT: ear pain (right). denies: throat pain, dental pain, hearing loss, epistaxis, congestion Respiratory: denies: cough, shortness of breath, wheezing Cardiovascular: denies: chest pain, palpitations Endocrine: no symptoms reported Gastrointestinal: denies: abdominal pain, nausea, vomiting, diarrhea Genitourinary: denies: urgency, dysuria, discharge Musculoskeletal: denies: back pain, joint swelling, arthralgia Skin: denies: rash, lesions Neurological: headache. denies: weakness, paresthesias Psychiatric: denies: anxiety, depression Hematological/Lymphatic: denies: easy bleeding, easy bruising ED Past Medical Hx - Past Medical History Previous Medical History?: Yes Hx Hypertension: No Hx GERD: Yes (PRN MEDS) Hx Liver Disease: No Hx Renal Disease: No Hx Kidney Stones: Yes Hx HIV: No - Surgical History Past Surgical History?: Yes Additional Surgical History: bladder, with stents - Social History Smoking Status: Current Every Day Smoker Substance Use Type: None - Medications Home Medications: Home Medications Medication Instructions Recorded Confirmed Last Taken Type Calcium Carbonate [Tums Ultra 1,177 mg PO PRN PRN 10/05/18 10/05/18 Unknown History Strength] HYDROcodone/ACETAMINOPHEN [Holmes 1 each PO PRN PRN 10/05/18 10/05/18 Unknown History 5-325 Tablet] Amoxicillin/Potassium Clav 1 each PO Q12H #20 tablet 02/22/19 Unknown Rx [Augmentin 875-125 Tablet] Ibuprofen [Motrin] 800 mg PO Q8HR PRN #20 tablet 02/22/19 Unknown Rx Ofloxacin 0.3% [Floxin 0.3% Otic] 1 drop OT DAILY #1 bottle 02/22/19 Unknown Rx ED Physical Exam - General Limitations: No Limitations General appearance: alert, in no apparent distress - Head Head exam: Present: atraumatic, normocephalic, normal inspection - Eye Eye exam: Present: normal appearance, PERRL, EOMI Pupils: Present: normal accommodation - ENT ENT exam: Present: normal exam, normal orophraynx, mucous membranes moist, other (erythematous tender right TM; erythematous right ear canal; swollen tender post-auricular lymphadenopathy) - Neck Neck exam: Present: normal inspection, full ROM, lymphadenopathy. Absent: tenderness, meningismus, thyromegaly - Respiratory Respiratory exam: Present: normal lung sounds bilaterally. Absent: respiratory distress, wheezes, rales, rhonchi, stridor, chest wall tenderness, accessory muscle use, decreased breath sounds, prolonged expiratory - Cardiovascular Cardiovascular Exam: Present: regular rate, normal rhythm, normal heart sounds. Absent: systolic murmur, diastolic murmur, rubs, gallop - GI/Abdominal GI/Abdominal exam: Present: soft, normal bowel sounds. Absent: tenderness, guarding, rebound, hyperactive bowel sounds, hypoactive bowel sounds - Rectal Rectal exam: Present: deferred - Extremities Exam Extremities exam: Present: normal inspection, full ROM, normal capillary refill - Back Exam Back exam: Present: normal inspection, full ROM. Absent: tenderness, CVA tenderness (R), CVA tenderness (L), muscle spasm, paraspinal tenderness - Neurological Exam Neurological exam: Present: alert, oriented X3, CN II-XII intact, normal gait, reflexes normal - Psychiatric Psychiatric exam: Present: normal affect, normal mood - Skin Skin exam: Present: warm, dry, intact, normal color. Absent: rash ED Course Vital Signs 02/22/19 04:31 Temperature 98.3 F Pulse Rate 97 H Respiratory 20 Rate Blood Pressure 147/83 O2 Sat by Pulse 100 Oximetry - Reevaluation(s) Reevaluation #1: 02/22/19 04:57 This is a 28-year-old -Welsh female who presented to the ED with persistent right ear pain. In the ED, patient is alert and oriented 3 and is not in distress, with normal vital signs. Patient was treated for pain in the ED and discharged home on medications because of the physical exam findings acute otitis media, right temporal headache and post auricular lymphadenopathy. Patient was discharged home on pain medications and antibiotics and advised to follow-up with her primary care physician in 7-10 days for reevaluation or return to the ED immediately if symptoms get worse. ED Medical Decision Making - Medical Decision Making This is a 28-year-old -Welsh female who presented to the ED with persistent right ear pain. In the ED, patient is alert and oriented 3 and is not in distress, with normal vital signs. Patient was treated for pain in the ED and discharged home on medications because of the physical exam findings acute otitis media, right temporal headache and post auricular lymphadenopathy. Patient was discharged home on pain medications and antibiotics and advised to follow-up with her primary care physician in 7-10 days for reevaluation or return to the ED immediately if symptoms get worse. - Differential Diagnosis acute otitis media; Lymphadenopathy; Acute otitis externa Critical care attestation.: If time is entered above; I have spent that time in minutes in the direct care of this critically ill patient, excluding procedure time. ED Disposition Clinical Impression: Acute otitis media with effusion of right ear, Lymphadenopathy Acute otitis externa of right ear Qualifiers: Otitis externa type: unspecified type Qualified Code(s): H60.501 - Unspecified acute noninfective otitis externa, right ear Tension-type headache Qualifiers: Headache chronicity pattern: acute headache Intractability: not intractable Qualified Code(s): G44.209 - Tension-type headache, unspecified, not intractable Disposition: TO HOME OR SELFCARE Is pt being admited?: No Does the pt Need Aspirin: No Condition: Stable Instructions: Otitis Media (ED), Lymphadenopathy (ED), Acute Headache (ED) Additional Instructions: Take medications with food, drink plenty of fluids and follow-up with your primary care physician in 7-10 days for reevaluation. Return to the ED immediately if symptoms get worse. Prescriptions: Amoxicillin/Potassium Clav [Augmentin 875-125 Tablet] 1 each PO Q12H #20 tablet Ofloxacin 0.3% [Floxin 0.3% Otic] 1 drop OT DAILY #1 bottle Ibuprofen [Motrin] 800 mg PO Q8HR PRN #20 tablet PRN Reason: Pain , Severe (7-10) Referrals: [facility] [Outside] - 3-5 Days Time of Disposition: 05:01 Print Language: SWAZI
== END 2019-02-22 05:10 | disposition home or self-care (01) ==
LOC: ED 04:29
DX: H60.501 Unspecified acute noninfective otitis externa, right ear (principal); G44.209 Tension-type headache, unspecified, not intractable; R59.1 Generalized enlarged lymph nodes; K21.9 Gastro-esophageal reflux disease without esophagitis; F17.200 Nicotine dependence, unspecified, uncomplicated; Z79.1 Long term (current) use of non-steroidal anti-inflammatories (NSAID); Z79.899 Other long term (current) drug therapy; Z87.442 Personal history of urinary calculi
CPT/HCPCS: 99282

== ENCOUNTER 2019-09-17 07:44 | Emergency (ER) | payer SELFPAY ==
[2019-09-17 07:50] VITALS: BP 142/82
--- NOTE | 2019-09-17 10:16 | Emergency Department Report ---
ED Female HPI - General Chief complaint: Urogenital-Female Stated complaint: CONSTANT NOSE BLEED/VAGINAL PAIN Time Seen by Provider: 09/17/19 08:52 Source: patient Mode of arrival: Ambulatory Limitations: No Limitations - History of Present Illness Initial comments: 29-year-old -Irish female without significant past medical history presents with complaints of intermittent nosebleeds for 4 days and vaginal itching and swelling x2 weeks. She denies any current nosebleed. She reports she has been having a flare of her allergies in blowing and wiping her nose a great deal. She denies any facial pain, dizziness, known blood clotting disorders, blood thinners, trauma to the nose, or fever. She denies any vaginal discharge, bleeding, dysuria, hematuria, or dyspareunia. She states she took a leftover Diflucan and her symptoms improved initially and then worsened after using sex toys. -: Sudden - Related Data Home Medications Medication Instructions Recorded Confirmed Last Taken Calcium Carbonate [Tums Ultra 1,177 mg PO PRN PRN 10/05/18 10/05/18 Unknown Strength] HYDROcodone/ACETAMINOPHEN [[place] 1 each PO PRN PRN 10/05/18 10/05/18 Unknown 5-325 Tablet] Previous Rx's Medication Instructions Recorded Last Taken Type Amoxicillin/Potassium Clav 1 each PO Q12H #20 tablet 02/22/19 Unknown Rx [Augmentin 875-125 Tablet] Ibuprofen [Motrin] 800 mg PO Q8HR PRN #20 tablet 02/22/19 Unknown Rx Ofloxacin 0.3% [Floxin 0.3% Otic] 1 drop OT DAILY #1 bottle 02/22/19 Unknown Rx CLOTRIMAZOLE 1% Vag Cream [Mycelex 1 applicatio VG QHS 10 Days #1 tube 09/17/19 Unknown Rx Vag cream] Fluconazole [Diflucan TAB] 150 mg PO ONCE 1 Days #1 tablet 09/17/19 Unknown Rx Triamcinolone 0.1% [Kenalog 0.1% 1 applic TP BID PRN #1 tube 09/17/19 Unknown Rx CREAM] predniSONE [Deltasone] 20 mg PO TID 3 Days #9 tab 09/17/19 Unknown Rx Allergies Allergy/AdvReac Type Severity Reaction Status Date / Time No Known Allergies Allergy Verified 10/05/18 12:29 ED Review of Systems ROS: Stated complaint: CONSTANT NOSE BLEED/VAGINAL PAIN Other details as noted in HPI Constitutional: denies: chills, fever ENT: epistaxis. denies: throat pain Respiratory: denies: cough Gastrointestinal: denies: abdominal pain, nausea, vomiting Genitourinary: denies: urgency, dysuria, frequency, hematuria, discharge, abnormal menses, dyspareunia Skin: pruritus. denies: lesions, change in color Neurological: denies: headache, numbness, paresthesias, confusion, abnormal gait ED Past Medical Hx - Past Medical History Previous Medical History?: Yes Hx Hypertension: No Hx GERD: Yes (PRN MEDS) Hx Liver Disease: No Hx Renal Disease: No Hx Kidney Stones: Yes Hx HIV: No - Surgical History Past Surgical History?: Yes Additional Surgical History: bladder, with stents - Social History Smoking Status: Current Every Day Smoker Substance Use Type: None - Medications Home Medications: Home Medications Medication Instructions Recorded Confirmed Last Taken Type Calcium Carbonate [Tums Ultra 1,177 mg PO PRN PRN 10/05/18 10/05/18 Unknown History Strength] HYDROcodone/ACETAMINOPHEN [[place] 1 each PO PRN PRN 10/05/18 10/05/18 Unknown History 5-325 Tablet] Amoxicillin/Potassium Clav 1 each PO Q12H #20 tablet 02/22/19 Unknown Rx [Augmentin 875-125 Tablet] Ibuprofen [Motrin] 800 mg PO Q8HR PRN #20 tablet 02/22/19 Unknown Rx Ofloxacin 0.3% [Floxin 0.3% Otic] 1 drop OT DAILY #1 bottle 02/22/19 Unknown Rx CLOTRIMAZOLE 1% Vag Cream [Mycelex 1 applicatio VG QHS 10 Days #1 tube 09/17/19 Unknown Rx Vag cream] Fluconazole [Diflucan TAB] 150 mg PO ONCE 1 Days #1 tablet 09/17/19 Unknown Rx Triamcinolone 0.1% [Kenalog 0.1% 1 applic TP BID PRN #1 tube 09/17/19 Unknown Rx CREAM] predniSONE [Deltasone] 20 mg PO TID 3 Days #9 tab 09/17/19 Unknown Rx ED Physical Exam - General Limitations: No Limitations General appearance: alert, in no apparent distress - Head Head exam: Present: atraumatic, normocephalic - Eye Eye exam: Present: normal appearance, PERRL. Absent: scleral icterus - ENT ENT exam: Present: mucous membranes moist, other (Very minimal bleeding noted to anterior left nare, no tenderness palpation of nose or face or swelling noted.) - Neck Neck exam: Present: normal inspection, full ROM - Respiratory Respiratory exam: Absent: respiratory distress - Cardiovascular Cardiovascular Exam: Present: regular rate, normal rhythm - External exam: Present: swelling (Mild to moderate swelling noted of right labia menorah, no erythema noted, mild irritation noted). Absent: erythema, lesions, lacerations, ecchymosis, bleeding - Neurological Exam Neurological exam: Present: alert, oriented X3 - Psychiatric Psychiatric exam: Present: normal affect, normal mood - Skin Skin exam: Present: warm, dry, intact, normal color. Absent: rash ED Course Vital Signs 09/17/19 07:46 Temperature 98.9 F Pulse Rate 113 H Respiratory 18 Rate Blood Pressure 142/82 O2 Sat by Pulse 100 Oximetry ED Medical Decision Making - Medical Decision Making Patient here with complaints of intermittent nosebleed and vaginal itching and swelling. Nosebleed likely due to irritation of the anterior Kiesselbach plexus. Patient denies any STI symptoms. Mild to moderate swelling noted of right labia minora on exam-yeast vulvovaginitis versus vulvar dermatitis. Prescriptions for steroids and antifungals given. She is well-appearing and stable for discharge home. Patient states she does have an appointment with her [facility] [employer] [facility] [employer] OFFICER set for 2 weeks. Discussed strict return precautions in detail with patient who verbalizes understanding. Critical care attestation.: If time is entered above; I have spent that time in minutes in the direct care of this critically ill patient, excluding procedure time. ED Disposition Clinical Impression: Vulvovaginitis Disposition: DC- TO HOME OR SELFCARE Is pt being admited?: No Condition: Stable Instructions: Vaginitis (ED) Additional Instructions: Please follow-up with your [facility] CHIE[facility] CREATIVE OFFICER as scheduled Prescriptions: CLOTRIMAZOLE 1% Vag Cream [Mycelex Vag cream] 1 applicatio VG QHS 10 Days #1 tube predniSONE [Deltasone] 20 mg PO TID 3 Days #9 tab Fluconazole [Diflucan TAB] 150 mg PO ONCE 1 Days #1 tablet Triamcinolone 0.1% [Kenalog 0.1% CREAM] 1 applic TP BID PRN #1 tube PRN Reason: Itching
== END 2019-09-17 10:35 | disposition home or self-care (01) ==
LOC: ED 07:44
DX: N76.0 Acute vaginitis (principal); R04.0 Epistaxis; K21.9 Gastro-esophageal reflux disease without esophagitis; F17.200 Nicotine dependence, unspecified, uncomplicated; Z95.5 Presence of coronary angioplasty implant and graft; Z98.890 Other specified postprocedural states; Z79.899 Other long term (current) drug therapy; Z87.442 Personal history of urinary calculi
CPT/HCPCS: 99282

== ENCOUNTER 2020-02-13 22:52 | Emergency (ER) | payer SELFPAY ==
[2020-02-13 23:11] VITALS: BP 146/92
== END 2020-02-14 02:24 | disposition left against medical advice (07) ==
LOC: ED 22:52
DX: R50.9 Fever, unspecified (principal); M54.6 Pain in thoracic spine; Z53.21 Procedure and treatment not carried out due to patient leaving prior to being seen by health care provider

== ENCOUNTER 2020-05-03 22:42 | Emergency (ER) | payer SELFPAY ==
[2020-05-04 01:50] LABS: Bilirubin,Urine NEG (Negative); Blood,Urine NEG (Negative); Color,Urine Yellow (Yellow); Mucus,Urine 2+ /HPF; Protein,Urine <15 mg/dL mg/dL (Negative); Urobilinogen,Urine < 2.0 mg/dL (<2.0)
[2020-05-04 01:57] LABS: HCG Qualitative,Urine Negative (Negative)
--- NOTE | 2020-05-04 02:57 | Emergency Department Report ---
ED Female HPI - General Chief complaint: Urogenital-Female Stated complaint: BURNING URINATION/VAGINAL DISCHARGE Time Seen by Provider: 05/04/20 02:41 Source: patient Mode of arrival: Ambulatory Limitations: No Limitations - History of Present Illness Initial comments: The patient was evaluated in the emergency department for symptoms described in the history of present illness. He/she was evaluated in the context of the global COVID-19 pandemic, which necessitated consideration that the patient might be at risk for infection with the virus that causes COVID-19. Institutional protocols and algorithms that pertain to the evaluation of patients at risk for COVID-19 are in a state of rapid change based on information released by regulatory bodies including the CDC and federal and state organizations. These policies and algorithms were followed during the patient's care in the emergency department. Please note that these policies, procedures and recommendations changed on a rapid basis. 30-year-old -[place]ir[place] female presents to the emergency room stating that she had sex on Monday after 4 years of abstinence. Patient reports that she has a female partner in she had used a strap on and was being penetrated when she started having difficulty with entering her introitus. Patient states that she had noticed a small amount of light pink blood. Patient states on Monday she had an episode of vaginal discharge felt that it was a yeast infection and use [id number] Vagisil suppository. Patient states after she did use a suppository she started having pain in her vaginal area with urination. Patient states at this time she does not have any discomfort but would like for a female exam to see if she had any tearing. Patient denies any fever chills no nausea no vomiting no difficulty walking. MD Complaint: possible STD Onset/Timin -: days(s) Location: perineum Radiation: non-radiating Severity: mild Quality: burning Consistency: intermittent Improves with: bathing Worsens with: urination Are you Now?: No Last Menstrual Period: 04/10/20 EDC: 01/15/21 Associated Symptoms: vaginal discharge. denies: vaginal bleeding, abdominal pain, nausea/vomiting, fever/chills, headaches, hematuria - Related Data Sexually active: Yes (female) Home Medications Medication Instructions Recorded Confirmed Last Taken Calcium Carbonate [Tums Ultra 1,177 mg PO PRN PRN 10/05/18 10/05/18 Unknown Strength] HYDROcodone/ACETAMINOPHEN [[place] 1 each PO PRN PRN 10/05/18 10/05/18 Unknown 5-325 Tablet] Previous Rx's Medication Instructions Recorded Last Taken Type Amoxicillin/Potassium Clav 1 each PO Q12H #20 tablet 02/22/19 Unknown Rx [Augmentin 875-125 Tablet] Ibuprofen [Motrin] 800 mg PO Q8HR PRN #20 tablet 02/22/19 Unknown Rx Ofloxacin 0.3% [Floxin 0.3% Otic] 1 drop OT DAILY #1 bottle 02/22/19 Unknown Rx CLOTRIMAZOLE 1% Vag Cream [Mycelex 1 applicatio VG QHS 10 Days #1 tube 09/17/19 Unknown Rx Vag cream] Fluconazole (Nf) [Diflucan TAB] 150 mg PO ONCE 1 Days #1 tablet 09/17/19 Unknown Rx Triamcinolone 0.1% [Kenalog 0.1% 1 applic TP BID PRN #1 tube 09/17/19 Unknown Rx CREAM] predniSONE [Deltasone] 20 mg PO TID 3 Days #9 tab 09/17/19 Unknown Rx Allergies Allergy/AdvReac Type Severity Reaction Status Date / Time No Known Allergies Allergy Verified 10/05/18 12:29 ED Review of Systems ROS: Stated complaint: BURNING URINATION/VAGINAL DISCHARGE Other details as noted in HPI Comment: All other systems reviewed and negative ED Past Medical Hx - Past Medical History Previous Medical History?: Yes Hx Hypertension: No Hx GERD: Yes (PRN MEDS) Hx Liver Disease: No Hx Renal Disease: No Hx Kidney Stones: Yes Hx HIV: No - Surgical History Past Surgical History?: Yes Additional Surgical History: bladder, with stents - Social History Smoking Status: Never Smoker - Medications Home Medications: Home Medications Medication Instructions Recorded Confirmed Last Taken Type Calcium Carbonate [Tums Ultra 1,177 mg PO PRN PRN 10/05/18 10/05/18 Unknown History Strength] HYDROcodone/ACETAMINOPHEN [[place] 1 each PO PRN PRN 10/05/18 10/05/18 Unknown History 5-325 Tablet] Amoxicillin/Potassium Clav 1 each PO Q12H #20 tablet 02/22/19 Unknown Rx [Augmentin 875-125 Tablet] Ibuprofen [Motrin] 800 mg PO Q8HR PRN #20 tablet 02/22/19 Unknown Rx Ofloxacin 0.3% [Floxin 0.3% Otic] 1 drop OT DAILY #1 bottle 02/22/19 Unknown Rx CLOTRIMAZOLE 1% Vag Cream [Mycelex 1 applicatio VG QHS 10 Days #1 tube 09/17/19 Unknown Rx Vag cream] Fluconazole (Nf) [Diflucan TAB] 150 mg PO ONCE 1 Days #1 tablet 09/17/19 Unknown Rx Triamcinolone 0.1% [Kenalog 0.1% 1 applic TP BID PRN #1 tube 09/17/19 Unknown Rx CREAM] predniSONE [Deltasone] 20 mg PO TID 3 Days #9 tab 09/17/19 Unknown Rx ED Physical Exam - General Limitations: No Limitations General appearance: alert, in no apparent distress - Head Head exam: Present: atraumatic, normocephalic - Eye Eye exam: Present: normal appearance - ENT ENT exam: Present: mucous membranes moist - Respiratory Respiratory exam: Absent: accessory muscle use - GI/Abdominal GI/Abdominal exam: Present: soft. Absent: distended, tenderness, guarding - Speculum exam: Present: erythema, vaginal discharge, other (Swelling of the vaginal tissue at the introitus) Bi-manual exam: Present: normal bi-manual exam - Extremities Exam Extremities exam: Present: normal inspection, full ROM - Back Exam Back exam: Present: normal inspection - Neurological Exam Neurological exam: Present: alert, oriented X3, normal gait - Psychiatric Psychiatric exam: Present: normal affect, normal mood - Skin Skin exam: Present: warm, dry, intact, normal color. Absent: rash ED Course Vital Signs 05/04/20 00:29 Temperature 98.0 F Pulse Rate 85 Respiratory 17 Rate Blood Pressure 145/82 O2 Sat by Pulse 100 Oximetry ED Medical Decision Making - Lab Data Laboratory Tests 05/04/20 Unknown Urine Color Yellow Urine Turbidity Clear Urine pH 6.0 Ur Specific [place] 1.023 Urine Protein <15 mg/dl Urine Glucose (UA) Neg Urine Ketones Neg Urine Blood Neg Urine Nitrite Neg Urine Bilirubin Neg Urine Urobilinogen < 2.0 Ur Leukocyte Esterase Mod Urine WBC (Auto) 6.0 Urine RBC (Auto) 8.0 U Epithel Cells (Auto) 1.0 Urine Mucus 2+ Urine HCG, Qual Negative - Medical Decision Making 30-year-old -[place]ir[place] female presents to the emergency room stating that she had sex on Monday after 4 years of abstinence. Patient reports that she has a female partner in she had used a strap on and was being penetrated when she started having difficulty with entering her introitus. Patient states that she had noticed a small amount of light pink blood. Patient states on Monday she had an episode of vaginal discharge felt that it was a yeast infection and use [id number] Vagisil suppository. Patient states after she did use a suppository she started having pain in her vaginal area with urination. Patient states at this time she does not have any discomfort but would like for a female exam to see if she had any tearing. Patient denies any fever chills no nausea no vomiting no difficulty walking. Wet prep and chlamydia and gonorrhea has been sent. Urinalysis shows moderate amount of leukoesterase nitrate negative no elevated WBC. Wet prep is negative for any yeast trichomonas or bacterial vaginosis. Patient will be discharged home to follow-up with her [facility] provider. Critical care attestation.: If time is entered above; I have spent that time in minutes in the direct care of this critically ill patient, excluding procedure time. ED Disposition Clinical Impression: Vaginal irritation Disposition: DC-01 TO HOME OR SELFCARE Is pt being admited?: No Does the pt Need Aspirin: No Condition: Stable Additional Instructions: Urinalysis is negative, microbiology is negative for any bacterial vaginosis no trichomonas and no yeast. I recommend to discontinue the Vagisil. Follow-up with an [facility]IST. Tylenol or ibuprofen as needed for pain management. Referrals: PRIMARY CAREMD [Primary Care Provider] - 3-5 Days PHYLICIA ELLIS MD [Staff Physician] - 3-5 Days Forms: Work/School Release Form(ED)
[2020-05-04 03:47] VITALS: BP 132/80
== END 2020-05-04 03:45 | disposition home or self-care (01) ==
LOC: ED 22:42
DX: N89.8 Other specified noninflammatory disorders of vagina (principal); K21.9 Gastro-esophageal reflux disease without esophagitis; N20.0 Calculus of kidney; Z79.899 Other long term (current) drug therapy
CPT/HCPCS: 81001; 81025; 87210; 87591

== ENCOUNTER 2021-01-01 03:33 | Emergency (ER) | payer SELFPAY ==
[2021-01-01] MEDS ORDERED: IBUPROFEN 800 MG TAB PO ONE (04:31)
[2021-01-01] MEDS ORDERED: dexAMETHasone 20 MG/5 ML VIAL IM ONE (04:31)
[2021-01-01] MEDS ORDERED: AMOXICILLIN/K CLAV 875/125MG TAB PO ONE (04:31)
--- NOTE | 2021-01-01 04:39 | Emergency Department Report ---
ED General Adult HPI - General Chief complaint: Sore Throat Stated complaint: SORE THROAT,PAINFUL SWALLOWING Source: patient Mode of arrival: Ambulatory Limitations: No Limitations - History of Present Illness Initial comments: Patient is a 30-year-old female who presents for sore throat x3 days with sinus pressure bilateral frontal and maxillary. There is yellow clear postnasal drip. Patient states of subjective fever at home , and pain with swallowing patient is tolerating p.o. intake however. Symptoms are exacerbated by swallowing, symptoms are relieved by nothing tried - Related Data Home Medications Medication Instructions Recorded Confirmed Last Taken Calcium Carbonate [Tums Ultra 1,177 mg PO PRN PRN 10/05/18 10/05/18 Unknown Strength] HYDROcodone/ACETAMINOPHEN [[place] 1 each PO PRN PRN 10/05/18 10/05/18 Unknown 5-325 Tablet] Previous Rx's Medication Instructions Recorded Last Taken Type Amoxicillin/Potassium Clav 1 each PO Q12H #20 tablet 02/22/19 Unknown Rx [Augmentin 875-125 Tablet] Ibuprofen [Motrin] 800 mg PO Q8HR PRN #20 tablet 02/22/19 Unknown Rx Ofloxacin 0.3% [Floxin 0.3% Otic] 1 drop OT DAILY #1 bottle 02/22/19 Unknown Rx CLOTRIMAZOLE 1% Vag Cream [Mycelex 1 applicatio VG QHS 10 Days #1 tube 09/17/19 Unknown Rx Vag cream] Fluconazole (Nf) [Diflucan TAB] 150 mg PO ONCE 1 Days #1 tablet 09/17/19 Unknown Rx Triamcinolone 0.1% [Kenalog 0.1% 1 applic TP BID PRN #1 tube 09/17/19 Unknown Rx CREAM] predniSONE [Deltasone] 20 mg PO TID 3 Days #9 tab 09/17/19 Unknown Rx Amoxicillin/Potassium Clav 1 each PO BID 7 Days #14 tablet 01/01/21 Unknown Rx [Augmentin 875-125 Tablet] Ibuprofen [Motrin 800 MG tab] 800 mg PO Q8HR PRN #30 tablet 01/01/21 Unknown Rx dexAMETHasone [Decadron] 4 mg PO Q12H #4 tablet 01/01/21 Unknown Rx Allergies Allergy/AdvReac Type Severity Reaction Status Date / Time No Known Allergies Allergy Verified 10/05/18 12:29 ED Review of Systems ROS: Stated complaint: SORE THROAT,PAINFUL SWALLOWING Other details as noted in HPI Constitutional: denies: chills, fever Eyes: denies: eye pain, eye discharge, vision change ENT: ear pain, throat pain, congestion, other (sinus pain and pressure ) Respiratory: denies: cough, shortness of breath, wheezing Cardiovascular: denies: chest pain, palpitations Endocrine: no symptoms reported Gastrointestinal: denies: abdominal pain, nausea, vomiting, diarrhea Genitourinary: denies: urgency, dysuria, discharge Musculoskeletal: denies: back pain, joint swelling, arthralgia Skin: denies: rash, lesions Neurological: vertigo. denies: headache, weakness, numbness, paresthesias, confusion Psychiatric: denies: anxiety, depression Hematological/Lymphatic: denies: easy bleeding, easy bruising ED Past Medical Hx - Past Medical History Hx Hypertension: No Hx GERD: Yes (PRN MEDS) Hx Liver Disease: No Hx Renal Disease: No Hx Kidney Stones: Yes Hx HIV: No - Surgical History Additional Surgical History: bladder, with stents - Social History Smoking Status: Current Every Day Smoker - Medications Home Medications: Home Medications Medication Instructions Recorded Confirmed Last Taken Type Calcium Carbonate [Tums Ultra 1,177 mg PO PRN PRN 10/05/18 10/05/18 Unknown History Strength] HYDROcodone/ACETAMINOPHEN [[place] 1 each PO PRN PRN 10/05/18 10/05/18 Unknown History 5-325 Tablet] Amoxicillin/Potassium Clav 1 each PO Q12H #20 tablet 02/22/19 Unknown Rx [Augmentin 875-125 Tablet] Ibuprofen [Motrin] 800 mg PO Q8HR PRN #20 tablet 02/22/19 Unknown Rx Ofloxacin 0.3% [Floxin 0.3% Otic] 1 drop OT DAILY #1 bottle 02/22/19 Unknown Rx CLOTRIMAZOLE 1% Vag Cream [Mycelex 1 applicatio VG QHS 10 Days #1 tube 09/17/19 Unknown Rx Vag cream] Fluconazole (Nf) [Diflucan TAB] 150 mg PO ONCE 1 Days #1 tablet 09/17/19 Unknown Rx Triamcinolone 0.1% [Kenalog 0.1% 1 applic TP BID PRN #1 tube 09/17/19 Unknown Rx CREAM] predniSONE [Deltasone] 20 mg PO TID 3 Days #9 tab 09/17/19 Unknown Rx Amoxicillin/Potassium Clav 1 each PO BID 7 Days #14 tablet 01/01/21 Unknown Rx [Augmentin 875-125 Tablet] Ibuprofen [Motrin 800 MG tab] 800 mg PO Q8HR PRN #30 tablet 01/01/21 Unknown Rx dexAMETHasone [Decadron] 4 mg PO Q12H #4 tablet 01/01/21 Unknown Rx ED Physical Exam - General Limitations: No Limitations (96.9) General appearance: alert, in no apparent distress - Head Head exam: Present: atraumatic, normocephalic - Eye Eye exam: Present: normal appearance, PERRL, EOMI Pupils: Present: normal accommodation - ENT ENT exam: Present: mucous membranes moist, normal external ear exam - Expanded ENT Exam Expanded Ear exam: Present: normal external inspection Throat exam: Positive: tonsillar erythema, tonsillomegaly. Negative: tonsillar exudate ( dental exams and monitoring 90We ended symptoms), R peritonsillar mass (Patient currently planning camping significantlyPatient is managing), L peritonsillar mass - Neck Neck exam: Present: normal inspection, tenderness, full ROM, lymphadenopathy. Absent: meningismus, thyromegaly - Expanded Neck Exam Expanded Neck exam: Present: tenderness (no posterior vertebral point tenderness no swelling no crepitu no stridor no wheezing. ). Absent: midline deformity, anterior neck swelling, thyroid mass, carotid bruit, tracheal deviation - Respiratory Respiratory exam: Present: normal lung sounds bilaterally. Absent: respiratory distress, wheezes, stridor, chest wall tenderness - Cardiovascular Cardiovascular Exam: Present: regular rate, normal rhythm, normal heart sounds. Absent: systolic murmur, diastolic murmur, rubs, gallop - GI/Abdominal GI/Abdominal exam: Present: soft, normal bowel sounds. Absent: distended, tenderness - Rectal Rectal exam: Present: deferred - Extremities Exam Extremities exam: Present: normal inspection, full ROM, normal capillary refill. Absent: tenderness - Back Exam Back exam: Present: normal inspection, full ROM. Absent: tenderness - Neurological Exam Neurological exam: Present: alert, oriented X3, CN II-XII intact, normal gait - Expanded Neurological Exam Expanded Patient oriented to: Present: person, place, time Speech: Present: fluid speech Best Eye Response ([place]): (4) open spontaneously Best Motor Response ([place]): (6) obeys commands Best Verbal Response ([place]): (5) oriented Mary Total: 15 - Psychiatric Psychiatric exam: Present: normal affect, normal mood - Skin Skin exam: Present: warm, dry, intact, normal color ED Medical Decision Making - Medical Decision Making Plan treat for sinusitis, pharyngitis patient DC with prescriptions. Patient will follow-up with primary care doctor in 2 to 3 days. Joints Critical care attestation.: If time is entered above; I have spent that time in minutes in the direct care of this critically ill patient, excluding procedure time. ED Disposition Clinical Impression: Sinusitis Qualifiers: Sinusitis location: maxillary Chronicity: acute Recurrence: recurrent Qualified Code(s): J01.01 - Acute recurrent maxillary sinusitis Pharyngitis Qualifiers: Pharyngitis/tonsillitis etiology: unspecified etiology Qualified Code(s): J02.9 - Acute pharyngitis, unspecified Disposition: DC-01 TO HOME OR SELFCARE Is pt being admited?: No Does the pt Need Aspirin: No Condition: Stable Instructions: Sinusitis, Adult, [id number], Pharyngitis, [id number] Additional Instructions: Take medications as prescribed, follow-up primary care doctor in 2 to 3 days. Prescriptions: Amoxicillin/Potassium Clav [Augmentin 875-125 Tablet] 1 each PO BID 7 Days #14 tablet dexAMETHasone [Decadron] 4 mg PO Q12H #4 tablet Ibuprofen [Motrin 800 MG tab] 800 mg PO Q8HR PRN #30 tablet PRN Reason: pain fever Referrals: CECI MCKENZIE NP [Primary Care Provider] - 3-5 Days Forms: Work/School Release Form(ED) Time of Disposition: 05:02
== END 2021-01-01 07:05 | disposition home or self-care (01) ==
LOC: ED 03:33
DX: J02.9 Acute pharyngitis, unspecified (principal); J01.01 Acute recurrent maxillary sinusitis; F17.200 Nicotine dependence, unspecified, uncomplicated; K21.9 Gastro-esophageal reflux disease without esophagitis; Z79.899 Other long term (current) drug therapy; Z98.890 Other specified postprocedural states
CPT/HCPCS: 96372; 99282; J1100

== ENCOUNTER 2021-01-21 09:04 | Emergency (ER) | payer MEDICAID ==
--- NOTE | 2021-01-21 10:16 | Emergency Department Report ---
Chief Complaint: Medical Clearance Stated Complaint: EXPOSED TO SHINGLES Time Seen by Provider: 01/21/21 10:05 - HPI History of Present Illness: Patient is a 30-year-old female presents emergency room with complaints of being exposed to shingles.She states that she had chickenpox as a child. She states that she had one small itchy bump to her arm. She denies any fever, chills, nausea, vomiting, diarrhea. Patient is not immune compromised. No allergies to medications. Vitals are stable On exam: There is one 2 millimeter papule present to the left forearm, there is no diffuse rash, there is no crusting, no scaling, no blistering, no vesicles, there is no rash in a dermatomal distribution Patient is presenting for concerns for shingles exposure I discussed with patient given that she had chickenpox as a child and she is immune compentent someone could not give her shingles She was then concerned that she may have chickenpox, patient does not have any significant rash or any signs for concerns of chickenpox and she already had chicken pox as a child Advised patient to follow-up with her primary care doctor Return to emergency room for new or worse symptoms discussed return precautions medical screen examination performed and there is no threat to life or limb at this time - Exam Vital Signs: Vital Signs 01/21/21 09:12 Temperature 99.5 F Pulse Rate 76 Respiratory 18 Rate Blood Pressure 141/92 O2 Sat by Pulse 99 Oximetry MSE screening note: Focused history and physical exam performed. ED Disposition for MSE Clinical Impression: Encounter for medical screening examination Disposition: - TO HOME OR SELFCARE Is pt being admited?: No Does the pt Need Aspirin: No Condition: Stable Additional Instructions: Please follow-up with a primary care doctor. Return to emergency room for new or symptoms. Referrals: your, primary care doctor [Other] - 2-3 Days Time of Disposition: 10:15 Print Language: KHMER
[2021-01-21 10:36] VITALS: BP 119/82
== END 2021-01-21 10:36 | disposition home or self-care (01) ==
LOC: ED 09:04
DX: B02.9 Zoster without complications (principal); Z00.00 Encounter for general adult medical examination without abnormal findings
CPT/HCPCS: 99282